=== PATIENT | male | born 1980 | race Caucasian/White ===

== ENCOUNTER 2018-12-27 00:35 | Emergency (ER) | payer SELFPAY ==
[~2018-12-27] VITALS: Ht 170.2 cm; Wt 90.1 kg
[~2018-12-27 00:35] MED LIST: ACET325T33 PO; CIPR500T4 PO; HYDR-3498 PO; IBUP-1542 PO; TAMS-14 PO
[2018-12-27 00:40] VITALS: Ht 170.2 cm; Wt 90.1 kg
--- NOTE | 2018-12-27 02:32 | ERD ---
ER Documentation Chief Complaint Chief Complaint L arm numbbess but no Neuro deficits 10 mins ago HPI This is a 38-year-old male with no chronic past medical history who is presenting for a tingling sensation to his left hand and twitching to the left eye, beginning this evening and lasting approximately 5 minutes before resolving on its own. The patient is anxious in the room. The patient reports no symptoms at this time. He endorses no focal deficits. He has no weakness or numbness or tingling to the face or extremities at this time. This is never happened before. He reports that he was simply watching the news when this started. He does not endorse any alleviating or exacerbating factors. The patient denies feeling sick recently. The patient denies fever or chills. The patient has had no headache or vision changes. The patient does not endorse neck or back pain. The patient denies lightheadedness or dizziness. The patient has had no chest pain or trouble breathing. The patient denies nausea or vomiting. The patient denies abdominal pain. The patient denies changes to bowel movements or urination. ROS All systems reviewed and are negative except as per history of present illness. Medications Home Meds Discontinued Scripts Acetaminophen* (Tylenol*) 325 Mg Tablet, 2 TAB PO Q8 PRN for PAIN AND OR ELEVATED TEMP, #20 TAB Prov:GIDEON WISE MD 08/03/18 Ciprofloxacin Hcl* (Ciprofloxacin Hcl*) 500 Mg Tablet, 500 MG PO BID for 7 Days, TAB Prov:GIDEON WISE MD 08/03/18 Tamsulosin Hcl* (Flomax*) 0.4 Mg Cap.er.24h, 0.4 MG PO QPM, #30 CAP Prov:NINA ROWLAND 10/08/15 Ibuprofen* (Motrin*) 600 Mg Tab, 600 MG PO Q6, #30 TAB Prov:NINA ROWLAND 10/08/15 Hydrocodone Bit-Acetaminophen* (Provo*) 5-325 Mg Tab, 1 TAB PO Q6 PRN for PAIN, #20 TAB Prov:NINA ROWLAND 10/08/15 Allergies Allergies: Coded Allergies: No Known Allergy (Unverified , 03/03/14) PMhx/Soc Medical and Surgical Hx: pt denies Surgical Hx History of Surgery: No Anesthesia Reaction: No Hx Neurological Disorder: No Hx Respiratory Disorders: No Hx Cardiac Disorders: No Hx Psychiatric Problems: No Hx Miscellaneous Medical Probl: Yes (Kidney stones) Hx Alcohol Use: No Hx Substance Use: No Hx Tobacco Use: No Smoking Status: Never smoker FmHx Family History: No diabetes Physical Exam Vitals Vital Signs Date Temp Pulse Resp B/P (MAP) Pulse Ox O2 O2 Flow FiO2 Time Delivery Rate 12/27/18 76 24 127/83 98 Room Air 00:52 (98) 12/27/18 96.9 80 20 125/75 97 00:40 (92) Physical Exam Const: No apparent distress, well-developed, well-nourished Head: Normocephalic, Atraumatic Eyes: Normal Conjunctiva. Extraocular movements intact. Pupils equal, round and reactive to light ENT: Normal External Ears, Nose and Mouth. Neck: Full range of motion. No meningismus. Resp: Clear to auscultation bilaterally, No wheezes, rales or rhonchi Cardio: Regular rate and rhythm. No murmurs, rubs or gallops Abd: Soft, non tender, non distended. Normal bowel sounds Skin: No petechiae or rashes Back: No midline tenderness. No CVA tenderness Ext: No cyanosis, or edema Neur: Awake and alert, oriented 4. Cranial nerves intact. No facial droop. Normal strength, sensation and coordination. Psych: Normal Mood and Affect Procedures/MDM MDM The patient presents for a transient episode of reported paresthesias. Anxio usness is certainly a possibility. A muscle cramp is also possibility. The patient has no symptoms currently. He has a normal neurologic exam. I do not see any evidence of an acute neurologic pathology. I do not suspect cerebral ischemia or intracranial hemorrhage. The patient does not have a history of seizure, and I have a decreased suspicion for this as well. The patient is otherwise a healthy individual. I have decreased suspicion for metabolic emergency. I do not suspect a cardiopulmonary process. The patient is not hypoxic. I do not suspect an infectious process. There is no evidence of cellulitis or abscess or other soft tissue infection. The patient is neurovascularly intact. TREATMENT/DISPOSITION The patient does not require any emergent treatment. DISCHARGE Upon reevaluation of the patient, symptoms have improved. No emergent diagnoses were identified. At this time, I feel that the patient stable for discharge. The patient was instructed to follow-up with a primary care physician in 1-3 days. The patient will be given strict precautions with which to return to the emergency department. Prescriptions: None The patient's blood pressure was elevated at greater than 120/80 while in the emergency department. The patient was otherwise stable with no evidence of hypertensive urgency or emergency. The patient does not require admission for blood pressure control. I have discussed with the patient the risks of hypertension. I have instructed the patient to return to the ER for any new or worsening symptoms including chest pain, shortness of breath, headache, blurred vision, confusion, nausea, vomiting or LOC. I have advised the patient to follow up with the primary care physician for outpatient monitoring and treatment for hypertension in 1-3 days. Disclaimer: Inadvertent spelling and grammatical errors are likely due to EHR/dictation software use and do not reflect on the overall quality of patient care. Note that the electronic time recorded on this note does not necessarily reflect the actual time of the patient encounter. Departure Diagnosis: Primary Impression: Paresthesia Condition: Stable Patient Instructions: Paraesthesias Additional Instructions: Thank you for for coming to [facility] for your care today. Please ask your nurse or provider if you have questions about your care today and do not leave until all your questions have been answered. Please use any medications given as directed and follow-up with your doctor (or the doctor you were referred to) in the next 1-3 days. If you do not have a primary care doctor you may follow up at [place] [facility] (listed below). You may also use motrin and tylenol as needed for fever and/or pain unless instructed otherwise by your provider or nurse. Indications for more urgent follow-up have been discussed, but you may return to the Emergency Department at ANY time for any worrisome or worsening symptoms. If you have abdominal pain, please know that no test or exam you received is perfect and you should follow up within 8 hours for continued pain. If you had any imaging studies today, such as an X-Ray or CT Scan, these studies will be reviewed later by a radiologist. You will be called if there are important findings that were not identified today, so make sure the contact information you provided at registration is correct. If you received any narcotic pain control medicine today, such as Vicodin, Morphine or Dilaudid, your coordination and judgment may be affected for a number of hours. Please do not drive or operate heavy machinery, and you may want someone to assist you at home. If you were given a prescription for narcotic medication, be aware that it is very addictive- use sparingly and only if necessary. PLEASE SEEK FURTHER EVALUATION AND MANAGEMENT AT YOUR DOCTORS OFFICE WITHIN THE NEXT 1-3 DAYS. IT IS YOUR RESPONSIBILITY TO MAKE AN APPOINTMENT FOR FOLOW-UP CARE. IF YOU HAVE A PRIMARY DOCTOR, PLEASE CALL THEIR OFFICE TO SCHEDULE AN APPOINTMENT FOR FOLLOW UP. IF YOU DO NOT HAVE A PRIMARY DOCTOR YOU CAN CALL OUR PHYSICIAN REFERRAL HOTLINE AT IF YOU CAN NOT AFFORD TO SEE A PHYSICIAN YOU CAN CHOSE FROM THE FOLLOWING FORMERLY [facility], [facility] CLINICS: [facility] [address] [facility] [facility] [facility] [address] [facility] [facility] [address] [facility] [address] [facility]. [facility] [address] [facility]. [facility]. [address] GUERA GUZMAN MD Dec 27, 2018 02:32
[2018-12-27 02:45] VITALS: BP 114/73; PULSE 73; RESP 16
== END 2018-12-27 02:45 | disposition home or self-care (01) ==
LOC: E/R 00:35
DX: R20.2 Paresthesia of skin (principal); R40.2142 Coma scale, eyes open, spontaneous, at arrival to emergency department; R40.2362 Coma scale, best motor response, obeys commands, at arrival to emergency department; R40.2252 Coma scale, best verbal response, oriented, at arrival to emergency department
CPT/HCPCS: 99282

== ENCOUNTER 2019-04-18 05:05 | Emergency (ER) | payer MEDICAID ==
[~2019-04-18] VITALS: Ht 167.6 cm; Wt 94.6 kg
[~2019-04-18 05:05] MED LIST changes: -ACET325T33 PO; -CIPR500T4 PO; -HYDR-3498 PO; +HYDR-4011 PO; -IBUP-1542 PO; +MENT56CR TP; +NAPR-985 PO; -TAMS-14 PO
[2019-04-18 05:07] VITALS: BP 136/83; PULSE 82; RESP 22; Ht 167.6 cm; Wt 94.6 kg
[2019-04-18] MEDS ORDERED: KETOROLAC 60 MG INJ IM STA (06:09)
== END 2019-04-18 07:35 | disposition home or self-care (01) ==
LOC: FTE 05:05
DX: M54.9 Dorsalgia, unspecified (principal)
CPT/HCPCS: 71045; J1885; 96372